=== PATIENT | female | born 1955 | race African-American/Black ===

== ENCOUNTER → 2017-11-14 | Outpatient (CLI) | payer OTHER ==
[~2017-11-14] MED LIST: ALLERGY RELIEF25 M1 PO; FISH OIL300 MG PO; HYDROCHLOROTH12.5 M3 PO; HYDROCHLOROTHIA25 MG PO; HYDROXYZINE HCL25 MG PO; IBUPROFEN800 MG PO; LIPITOR20 MG PO; LOTRISONE15 GM TP; LOVASTATIN20 MG PO; METFORMIN HCL500 M1 PO; MOBIC15 MG PO; PHENTERMINE HCL30 MG PO; POTASSIUM CHLO10 ME3 PO; PROZAC40 MG PO; VALIUM5 MG PO; VITAMIN B-12 PO; VITAMIN B-12250 MCG PO; [UNRECOGNIZED DRUG - OTHER] PO
== END | disposition home or self-care (01) ==
LOC: CDC 11:23
DX: Z01.810 Encounter for preprocedural cardiovascular examination (principal); R22.42 Localized swelling, mass and lump, left lower limb; I45.10 Unspecified right bundle-branch block; R94.31 Abnormal electrocardiogram [ECG] [EKG]
CPT/HCPCS: 93000

== ENCOUNTER 2017-11-26 08:05 | Day surgery (SDC) | payer OTHER ==
[~2017-11-26] VITALS: Ht 170.2 cm; Wt 90.3 kg
[2017-11-26 09:28] VITALS: BP 134/74
[2017-11-26 14:55] VITALS: BP 115/59
[2017-11-26 19:07] VITALS: BP 112/59
[2017-11-26 23:07] VITALS: BP 114/55
[2017-11-27 03:36] VITALS: BP 122/60
[2017-11-27 05:56] LABS: BASOPHIL (%) 0.4 % (0-1); EOSINOPHIL (%) 0.5 % (0-5); HEMATOCRIT 34.1 % (36.0-46.0); IMMATURE GRANULOCYTE (%) 0.2 % (0.0-0.7); LYMPHOCYTE (%) 27.1 % (15-42); LYMPHOCYTE COUNT 1.5 K/uL (1.0-2.8); MCH 25.6 PG (29.0-34.0); MONOCYTE (%) 6.1 % (3-12); MONOCYTE COUNT 0.3 K/uL (0-0.8); NEUTROPHIL (%) 65.7 % (45-76); NEUTROPHIL COUNT 3.6 K/uL (1.8-6.4); PLATELET COUNT 229 K/uL (156-360); RBC DIS.WIDTH-CV 14.6 % (11.8-14.6); RBC DIS.WIDTH-SD 42.8 % (39-53); RED BLOOD COUNT 4.26 M/uL (3.80-5.20); WHITE BLOOD COUNT 5.5 K/uL (4.1-10.2)
[2017-11-27 06:02] LABS: HEMOGLOBIN 10.9 G/DL (11.9-15.5)
[2017-11-27 06:22] LABS: CHLORIDE 106 MEQ/L (99-109); CREATININE 0.6 MG/DL (0.6-1.3); GFR ESTIMATE (CALCULATED) > 59 mL/min/; GLUCOSE 101 mg/dL (70-99); POTASSIUM 3.9 MEQ/L (3.7-5.4); SODIUM 139 MEQ/L (136-147); UREA NITROGEN (BUN) 8 mg/dL (9-23)
[2017-11-27 07:26] VITALS: BP 104/54
[2017-11-27] MEDS ORDERED: HYDROCODON-ACE1 EAC7 PO (10:15)
[2017-11-27 11:03] VITALS: BP 113/58
[2017-11-27] MEDS ORDERED: COLACE100 MG PO (11:21)
== END 2017-11-27 12:06 | disposition home or self-care (01) ==
LOC: SDC 08:05 → 2EAST 12:48 → 2SOUTH 12:48 → ENRESERV 13:01 → SDC 14:02 → 2EAST 14:42
PROVIDERS: Student in an Organized Health Care Education/Training Program
PROC: 0JBM0ZZ Excision of Left Upper Leg Subcutaneous Tissue and Fascia, Open Approach (ICD-10-PCS; principal; 2017-11-26)
DX: D17.24 Benign lipomatous neoplasm of skin and subcutaneous tissue of left leg (principal); I10 Essential (primary) hypertension; E11.9 Type 2 diabetes mellitus without complications; E27.1 Primary adrenocortical insufficiency; I45.10 Unspecified right bundle-branch block; Z79.84 Long term (current) use of oral hypoglycemic drugs; F17.200 Nicotine dependence, unspecified, uncomplicated
CPT/HCPCS: 80048; 82948; 85025; 88304; 93005; G0378; J0131; J0690; J1170; J1200; J1650; J2250; J2405; J3010; J7120; S0020

== ENCOUNTER 2018-02-11 06:51 | Day surgery (SDC) | payer OTHER ==
[~2018-02-11] VITALS: Ht 167.6 cm; Wt 90.0 kg
[~2018-02-11 06:51] MED LIST changes: +COLACE100 MG PO; +HYDROCODON-ACE1 EAC7 PO
== END 2018-02-11 11:19 | disposition home or self-care (01) ==
LOC: CATH 06:51
PROVIDERS: Surgery
DX: Z45.2 Encounter for adjustment and management of vascular access device (principal); I87.8 Other specified disorders of veins; C50.919 Malignant neoplasm of unspecified site of unspecified female breast
CPT/HCPCS: 82948; C1769; C1788; C1892; C1894; J0690; J1644; J2250; J2405; J3010; S0020